=== PATIENT | female | born 1970 | race Caucasian/White ===

== ENCOUNTER → 2017-10-07 | Outpatient (CLI) | payer BC ==
--- NOTE | 2017-10-08 08:38 | MM ---
Reason for exam: screening (asymptomatic). Last mammogram was performed 1 year and 3 months ago. History: Family history of breast cancer in paternal cousin at age 40. Cancelled Right Mammotome of the right breast, July 28, 2013. Taking hormonal contraceptives for 6 years beginning at age 37. Physical Findings: A clinical breast exam by your physician is recommended on an annual basis and results should be correlated with mammographic findings. MG Screening Mammo w CAD Bilateral CC and MLO view(s) were taken. Prior study comparison: July 09, 2016, bilateral MG screening mammo w CAD. March 15, 2015, bilateral MG screening mammo w CAD. There are scattered fibroglandular densities. There is no discrete abnormality. ASSESSMENT: Negative, BI-RAD 1 RECOMMENDATION: Routine screening mammogram of both breasts in 1 year.
== END | disposition home or self-care (01) ==
LOC: RADMAMWWP 10:14
PROVIDERS: ATTEND Obstetrics & Gynecology
DX: Z12.31 Encounter for screening mammogram for malignant neoplasm of breast (principal)

== ENCOUNTER → 2019-01-02 | Outpatient (CLI) | payer BC ==
[2019-01-02 11:35] LABS: ALT 24 U/L (9-52); AST 16 U/L (14-36); Albumin 3.9 g/dL (3.5-5.0); Albumin/Globulin Ratio 1.3; Alkaline Phosphatase 61 U/L (38-126); Bilirubin,Unconjugated 0.8 mg/dL (0.0-1.1); Cholesterol 208 mg/dL (<200); Globulin 2.9 g/dL; Glucose 86 mg/dL (74-99); HDL Cholesterol 44 mg/dL (40-60); LDL Cholesterol,Calculated 142 mg/dL (0-99); Total Bilirubin 0.9 mg/dL (0.2-1.3); Total Protein 6.8 g/dL (6.3-8.2); Triglycerides 112 mg/dL (<150)
== END | disposition home or self-care (01) ==
LOC: LABWHC1 10:42
PROVIDERS: ATTEND Internal Medicine
DX: Z00.00 Encounter for general adult medical examination without abnormal findings (principal)
CPT/HCPCS: 36415; 80061; 80076; 82947; 84443

== ENCOUNTER → 2020-01-30 | Outpatient (CLI) | payer BC ==
[2020-01-30 16:41] LABS: African American GFR (CKD) 76.6 (60.0-200.0); Albumin 4.3 g/dL (3.80-4.90); Albumin/Globulin Ratio 1.95 (1.60-3.17); Anion Gap 5.6 mmol/L (4.00-12.00); Calcium 9.2 mg/dL (8.7-10.3); Carbon Dioxide 28.4 mmol/L (21.6-31.8); Chol/HDL Ratio 2.86; Globulin 2.2 g/dL (1.6-3.3); LDL Cholesterol,Calculated 100.2 mg/dL (0.0-131.0); Non-African American GFR(CKD) 66.1 (60.0-200.0); Potassium 4.5 mmol/L (3.5-5.5); Total Bilirubin 0.7 mg/dL (0.2-1.2); Total Protein 6.5 g/dL (6.2-8.2); VLDL Calculation 22.8 mg/dL (5.00-40.00)
[2020-01-30 17:26] LABS: T4, Free (Free Thyroxine) 1.2 ng/dL (0.80-1.80)
== END | disposition home or self-care (01) ==
LOC: LABWHC1 11:16
PROVIDERS: ATTEND Internal Medicine
DX: Z00.00 Encounter for general adult medical examination without abnormal findings (principal); K21.9 Gastro-esophageal reflux disease without esophagitis; R63.5 Abnormal weight gain
CPT/HCPCS: 36415; 80053; 80061; 84439; 84443

== ENCOUNTER → 2022-02-07 | Outpatient (CLI) | payer BC ==
--- NOTE | 2022-02-08 13:59 | MM ---
Reason for exam: screening (asymptomatic). Last mammogram was performed 4 years and 4 months ago. History: Family history of breast cancer in paternal cousin at age 40. Cancelled Right Mammotome of the right breast, July 28, 2013. Took hormonal contraceptives beginning at age 37. Physical Findings: A clinical breast exam by your physician is recommended on an annual basis and results should be correlated with mammographic findings. MG Screening Mammo w CAD Bilateral CC and MLO view(s) were taken. Prior study comparison: October 07, 2017, bilateral MG screening mammo w CAD. July 09, 2016, bilateral MG screening mammo w CAD. There are scattered fibroglandular densities. There is no discrete abnormality. No significant changes when compared with prior studies. ASSESSMENT: Negative, BI-RAD 1 RECOMMENDATION: Routine screening mammogram of both breasts in 1 year.
== END | disposition home or self-care (01) ==
LOC: RADMAMWWP 07:32
PROVIDERS: ATTEND Obstetrics & Gynecology
DX: Z12.31 Encounter for screening mammogram for malignant neoplasm of breast (principal); Z80.3 Family history of malignant neoplasm of breast
CPT/HCPCS: 77067

== ENCOUNTER → 2023-02-28 | Outpatient (CLI) | payer BC ==
[2023-02-28 11:20] LABS: Chol/HDL Ratio 4.19 Ratio; LDL Cholesterol,Calculated 134.3 mg/dL (0.0-131.0)
== END | disposition home or self-care (01) ==
LOC: LABWHC1 06:52
PROVIDERS: ATTEND Family Medicine
DX: Z01.812 Encounter for preprocedural laboratory examination (principal); E78.5 Hyperlipidemia, unspecified
CPT/HCPCS: 36415; 80061

== ENCOUNTER → 2023-12-16 | Outpatient (CLI) | payer BC ==
--- NOTE | 2023-12-18 10:10 | MM ---
Reason for Exam: Screening (asymptomatic). Last mammogram was performed 1 year(s) and 10 month(s) ago. Patient History: Menarche at age 13. First Full-Term at age 29. Hormonal Contraceptives, from age 37 until age 38. 07/28/2013, Cancelled Right Mammotome on the right side. Paternal cousin had breast cancer, age 40. Risk Values: Rina 5 year model risk: 1.2%. NCI Lifetime model risk: 9.4%. Prior Study Comparison: 07/09/2016 Bilateral Screening Mammogram, [facility]. 10/07/2017 Bilateral Screening Mammogram, [facility] 02/07/2022 Bilateral Screening Mammogram, [facility]. Tissue Density: There are scattered fibroglandular densities. Findings: Analyzed By CAD. There is no suspicious group of microcalcifications or new suspicious mass. Overall Assessment: Negative, BI-RAD 1 Management: Screening Mammogram of both breasts in [address] [facility] will attempt to contact patient to return for supplemental views and ultrasound if indicated. Patient should continue monthly self-breast exams. A clinical breast exam by your physician is recommended on an annual basis. This exam should not preclude additional follow-up of suspicious palpable abnormalities. Note on Rina scores and lifetime risk: 1. A Rina score greater than 3% is considered moderate risk. If this is the case, consider specialist referral to assess eligibility for a risk reducing agent. 2. If overall lifetime risk for the development of breast cancer is 20% or higher, the patient may qualify for future screening with alternating mammogram and breast MRI. Electronically signed and approved by: Jerry Singletary DO
== END | disposition home or self-care (01) ==
LOC: RADMAMWWP 16:10
PROVIDERS: ATTEND Obstetrics & Gynecology
DX: Z12.31 Encounter for screening mammogram for malignant neoplasm of breast (principal); R92.323 Mammographic fibroglandular density, bilateral breasts; Z78.0 Asymptomatic menopausal state; Z92.0 Personal history of contraception; Z80.3 Family history of malignant neoplasm of breast
CPT/HCPCS: 77067

== ENCOUNTER → 2024-01-22 | Outpatient (CLI) | payer BC ==
--- NOTE | 2024-01-22 08:39 | XR ---
EXAMINATION TYPE: XR chest 2V DATE OF EXAM: 01/22/2024 7:23 AM CLINICAL INDICATION:Female, 53 years old with history of J40 BRONCHITIS, NOT SPECIFIED ACUTE OR CH RONIC; COMPARISON: 11/16/2011 TECHNIQUE: XR chest 2V Frontal and lateral views of the chest. FINDINGS: Lungs/Pleura: There is no evidence of pleural effusion, focal consolidation, or pneumothorax. Pulmonary vascularity: Unremarkable. Heart/mediastinum: Cardiomediastinal silhouette is unremarkable. Musculoskeletal: No acute osseous pathology. IMPRESSION: No acute cardiopulmonary disease/process.
== END | disposition home or self-care (01) ==
LOC: RADXRMAIN 07:09
PROVIDERS: ATTEND Family Medicine
DX: J40 Bronchitis, not specified as acute or chronic (principal); R07.89 Other chest pain
CPT/HCPCS: 71046

== ENCOUNTER → 2025-03-22 | Outpatient (CLI) | payer BC ==
--- NOTE | 2025-03-23 06:58 | MM ---
Reason for Exam: Screening (asymptomatic). Last mammogram was performed 1 year(s) and 3 month(s) ago. Patient History: Menarche at age 13. First Full-Term at age 29. Postmenopausal. Patient has history of breast feeding. Hormonal Contraceptives, from age 37 until age 38. 07/28/2013, Cancelled Right Mammotome on the right side. Paternal cousin had breast cancer, age 40. Risk Values: Rina 5 year model risk: 1.3%. NCI Lifetime model risk: 9.1%. Prior Study Comparison: 10/07/2017 Bilateral Screening Mammogram, [facility]. 02/07/2022 Bilateral Screening Mammogram, [facility]. 12/16/2023 Bilateral MG screening mammo w CAD, [facility]. Tissue Density: There are scattered areas of fibroglandular density. Findings: Analyzed By CAD. There is no suspicious group of microcalcifications or new suspicious mass in either breast. Overall Assessment: Negative, BI-RAD 1 Management: Screening Mammogram of both breasts in 1 year. . Patient should continue monthly self-breast exams. A clinical breast exam by your physician is recommended on an annual basis. This exam should not preclude additional follow-up of suspicious palpable abnormalities. Note on Rina scores and lifetime risk: 1. A Rina score greater than 3% is considered moderate risk. If this is the case, consider specialist referral to assess eligibility for a risk reducing agent. 2. If overall lifetime risk for the development of breast cancer is 20% or higher, the patient may qualify for future screening with alternating mammogram and breast MRI. [facility], , 03/23/2025 6:55 AM. Electronically signed and approved by: Casey Dumont M.D.
== END | disposition home or self-care (01) ==
LOC: RADMAMWWP 16:06
PROVIDERS: ATTEND Obstetrics & Gynecology
DX: Z12.31 Encounter for screening mammogram for malignant neoplasm of breast (principal); R92.323 Mammographic fibroglandular density, bilateral breasts; Z78.0 Asymptomatic menopausal state; Z80.3 Family history of malignant neoplasm of breast; Z92.0 Personal history of contraception
CPT/HCPCS: 77067